=== PATIENT | female | born 1990 | race Caucasian/White ===

== ENCOUNTER 2016-10-20 16:57 | Emergency (ER) | payer OTHER ==
[~2016-10-20] VITALS: Ht 165.1 cm; Wt 57.1 kg
[~2016-10-20 16:57] MED LIST: ADVIL,NUPRIN,M200 MG PO; BIRTH CONTROL PO; NAPROSYN500 MG PO; ROBAXIN500 MG PO; ULTRAM50 MG PO
[2016-10-20 19:20] VITALS: BP 118/76
== END 2016-10-20 19:20 | disposition home or self-care (01) ==
LOC: EME 16:57
DX: S83.92XA Sprain of unspecified site of left knee, initial encounter (principal); X50.0XXA Overexertion from strenuous movement or load, initial encounter; Y93.F2 Activity, caregiving, lifting; Y99.0 Civilian activity done for income or pay
CPT/HCPCS: 73564; 99281; 99284

== ENCOUNTER 2017-07-17 00:56 | Inpatient (IN) | payer OTHER ==
[2017-07-17] VITALS (10 sets, daily range): BP systolic 103–123; BP diastolic 57–84
[~2017-07-17] VITALS: Ht 165.1 cm; Wt 70.3 kg
[2017-07-17] MEDS ORDERED: PRENATAL TABLE1 EAC3 PO (01:28)
[2017-07-17] MEDS ORDERED: TYLENOL325 M2 PO (01:29)
[2017-07-17] MEDS ORDERED: ZYRTEC10 M3 PO (01:29)
[2017-07-17 06:57] LABS: BASOPHIL (%) 0.1 % (0-1); EOSINOPHIL (%) 0 % (0-5); HEMATOCRIT 37.7 % (36.0-46.0); HEMOGLOBIN 12.9 G/DL (11.9-15.5); IMMATURE GRANULOCYTE (%) 0.4 % (0.0-0.7); LYMPHOCYTE (%) 4.8 % (15-42); LYMPHOCYTE COUNT 0.6 K/uL (1.0-2.8); MCH 31.2 PG (29.0-34.0); MCHC 34.2 G/DL (30.0-36.0); MCV 91.3 FL (83-99); MONOCYTE (%) 2.6 % (3-12); MONOCYTE COUNT 0.3 K/uL (0-0.8); NEUTROPHIL (%) 92.1 % (45-76); NEUTROPHIL COUNT 11.5 K/uL (1.8-6.4); PLATELET COUNT 142 K/uL (156-360); RBC DIS.WIDTH-CV 13.1 % (11.8-14.6); RBC DIS.WIDTH-SD 43.3 % (39-53); RED BLOOD COUNT 4.13 M/uL (3.80-5.20); WHITE BLOOD COUNT 12.5 K/uL (4.1-10.2)
[2017-07-17 09:08] LABS: BASE EXCESS -5.8 mEq/L (-3 to +3); BICARBONATE 24.6 mEq/L (22-26); CARBOXY HGB 0.2 % (0-5); METHEMOGLOBIN 1.4 % (0-1.5); PCO2 69 mm Hg (35-45)
[2017-07-17 09:09] LABS: PO2 < 32 mm Hg (80-100); SITE CORD GAS ARTERIAL; pH 7.16 (7.35-7.45)
[2017-07-17 09:13] LABS: BASE EXCESS -5.3 mEq/L (-3 to +3); BICARBONATE 24.4 mEq/L (22-26); CARBOXY HGB 0.4 % (0-5); METHEMOGLOBIN 1.3 % (0-1.5)
[2017-07-17 09:14] LABS: PCO2 64 mm Hg (35-45); PO2 < 32 mm Hg (80-100); SITE VENOUS CORD GASES; pH 7.19 (7.35-7.45)
[2017-07-18 02:51] VITALS: BP 103/67
[2017-07-18 06:48] LABS: BASOPHIL (%) 0.1 % (0-1); EOSINOPHIL (%) 0.3 % (0-5); HEMATOCRIT 25.8 % (36.0-46.0); HEMOGLOBIN 8.7 G/DL (11.9-15.5); IMMATURE GRANULOCYTE (%) 0.3 % (0.0-0.7); LYMPHOCYTE (%) 14.8 % (15-42); LYMPHOCYTE COUNT 1.8 K/uL (1.0-2.8); MCH 32.1 PG (29.0-34.0); MCHC 33.7 G/DL (30.0-36.0); MCV 95.2 FL (83-99); MONOCYTE (%) 5.5 % (3-12); MONOCYTE COUNT 0.7 K/uL (0-0.8); NEUTROPHIL COUNT 9.6 K/uL (1.8-6.4); PLATELET COUNT 124 K/uL (156-360); RBC DIS.WIDTH-CV 13.6 % (11.8-14.6); RBC DIS.WIDTH-SD 46.5 % (39-53); RED BLOOD COUNT 2.71 M/uL (3.80-5.20); WHITE BLOOD COUNT 12.2 K/uL (4.1-10.2)
[2017-07-18 07:51] VITALS: BP 108/64
[2017-07-18 11:29] VITALS: BP 110/72
[2017-07-18 14:42] VITALS: BP 110/61
[2017-07-18 19:23] VITALS: BP 112/62
[2017-07-18 22:02] VITALS: BP 113/69
[2017-07-19 02:02] VITALS: BP 108/61
[2017-07-19 07:16] VITALS: BP 108/56
[2017-07-19] MEDS ORDERED: PUMP IN STYLE1 EACH MC ×2 (13:00→15:05)
[2017-07-19 14:24] VITALS: BP 103/58
[2017-07-19 17:10] LABS: HEMATOCRIT 27.7 % (36.0-46.0); HEMOGLOBIN 9.2 G/DL (11.9-15.5); MCH 31.6 PG (29.0-34.0); MCHC 33.2 G/DL (30.0-36.0); MCV 95.2 FL (83-99); PLATELET COUNT 161 K/uL (156-360); RBC DIS.WIDTH-CV 13.4 % (11.8-14.6); RBC DIS.WIDTH-SD 46.5 % (39-53); RED BLOOD COUNT 2.91 M/uL (3.80-5.20); WHITE BLOOD COUNT 8.1 K/uL (4.1-10.2)
[2017-07-19 23:00] VITALS: BP 106/71
[2017-07-20 07:14] VITALS: BP 118/79
[2017-07-20 14:26] VITALS: BP 115/67
[2017-07-20 23:05] VITALS: BP 113/55
[2017-07-21] MEDS ORDERED: IBUPROFEN800 MG PO (09:35)
[2017-07-21] MEDS ORDERED: FERROUS SULFAT325 MG PO (09:35)
== END 2017-07-21 17:55 | disposition home or self-care (01) | DRG 765 ==
LOC: LDRP-OP 00:56 → 2WEST 00:57
PROVIDERS: Advanced Practice Midwife; Obstetrics & Gynecology; Obstetrics & Gynecology Obstetrics
PROC: 10D00Z1 Extraction of Products of Conception, Low, Open Approach (ICD-10-PCS; principal; 2017-07-17)
PROC: 10907ZC Drainage of Amniotic Fluid, Therapeutic from Products of Conception, Via Natural or Artificial Opening (ICD-10-PCS; 2017-07-17)
DX: O77.0 Labor and delivery complicated by meconium in amniotic fluid (principal); D62 Acute posthemorrhagic anemia; O41.03X1 Oligohydramnios, third trimester, fetus 1; F33.9 Major depressive disorder, recurrent, unspecified; O99.354 Diseases of the nervous system complicating childbirth; O62.2 Other uterine inertia; Z37.0 Single live birth; O99.02 Anemia complicating childbirth; Z3A.40 40 weeks gestation of pregnancy; O76 Abnormality in fetal heart rate and rhythm complicating labor and delivery; D50.9 Iron deficiency anemia, unspecified; O99.344 Other mental disorders complicating childbirth; F43.10 Post-traumatic stress disorder, unspecified; F41.9 Anxiety disorder, unspecified; G43.909 Migraine, unspecified, not intractable, without status migrainosus; O12.04 Gestational edema, complicating childbirth; F41.1 Generalized anxiety disorder; O22.03 Varicose veins of lower extremity in pregnancy, third trimester; Z91.040 Latex allergy status; Z87.440 Personal history of urinary (tract) infections; Z87.891 Personal history of nicotine dependence; Z88.5 Allergy status to narcotic agent; Z80.6 Family history of leukemia; Z83.79 Family history of other diseases of the digestive system
CPT/HCPCS: 36600; 74018; 82803; 85025; 85027; 86850; 86900; 86901; 88307; J0131; J0330; J0595; J0690; J1170; J2210; J2274; J2405; J2550; J2590; J3010; J7120